=== PATIENT | male | born 1995 ===

== ENCOUNTER 2021-08-16 02:31 | Emergency (ER) | payer SELFPAY ==
[2021-08-16 03:02] VITALS: BP 136/78
== END 2021-08-17 13:19 | disposition left against medical advice (07) ==
LOC: ED 02:31
DX: M79.671 Pain in right foot (principal); Z53.21 Procedure and treatment not carried out due to patient leaving prior to being seen by health care provider

== ENCOUNTER 2021-08-28 12:48 | Emergency (ER) | payer SELFPAY ==
[2021-08-28 13:24] VITALS: BP 110/65
== END 2021-08-29 23:40 | disposition left against medical advice (07) ==
LOC: ED 12:48
DX: Z13.30 Encounter for screening examination for mental health and behavioral disorders, unspecified (principal); Z53.21 Procedure and treatment not carried out due to patient leaving prior to being seen by health care provider; V89.2XXA Person injured in unspecified motor-vehicle accident, traffic, initial encounter; Y93.89 Activity, other specified; Y92.89 Other specified places as the place of occurrence of the external cause; Y99.8 Other external cause status

== ENCOUNTER 2021-08-30 10:44 | Emergency (ER) | payer SELFPAY ==
[2021-08-30 10:58] VITALS: BP 113/71
== END 2021-08-30 13:00 | disposition left against medical advice (07) ==
LOC: ED 10:44
DX: Z00.00 Encounter for general adult medical examination without abnormal findings (principal); Z53.21 Procedure and treatment not carried out due to patient leaving prior to being seen by health care provider; Y08.89XA Assault by other specified means, initial encounter; Y93.89 Activity, other specified; Y92.89 Other specified places as the place of occurrence of the external cause; Y99.8 Other external cause status

== ENCOUNTER 2021-08-30 20:55 | Emergency (ER) | payer SELFPAY ==
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
[2021-08-30 23:51] LABS: Hemoglobin 12.9 gm/dl (11.8-15.2); Mean Corpuscular HGB Conc 33 % (32-34); Mean Corpuscular Volume 93 fl (84-94); Platelet Count 227 K/mm3 (140-440); Red Blood Count 4.21 M/mm3 (3.65-5.03); Red Cell Distribution Width 14.3 % (13.2-15.2)
[2021-08-31 00:01] LABS: BUN/Creatinine Ratio 11; Blood Urea Nitrogen 9 mg/dL (9-20); Hemolysis Index 6
[2021-08-31] MEDS ORDERED: ACETAMINOPHEN 325 MG TAB PO ONE (04:01)
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
[2021-08-31] MEDS ORDERED: ARIPiprazole 10 MG TAB PO ONE (10:33)
--- NOTE | 2021-08-31 11:16 | Event Note ---
Date: 08/31/21 vss no distress, awaiting placement . medically cleared
[2021-08-31] MEDS: FLUoxetine 10 MG TAB PO SCH (11:26)
[2021-08-31] MEDS: ARIPiprazole 10 MG TAB PO SCH (11:26)
[2021-08-31 19:35] LABS: Bilirubin,Urine NEG (Negative); Blood,Urine NEG (Negative); Color,Urine Colorless (Yellow); Protein,Urine <15 mg/dL mg/dL (Negative); RBC,Urine < 1.0 /HPF (0.0-6.0); Urobilinogen,Urine < 2.0 mg/dL (<2.0); WBC,Urine < 1.0 /HPF (0.0-6.0)
[2021-08-31 19:43] LABS: Amphetamine Screen,Urine PRESUMPTIVE NEGATIVE; Benzodiazepines Screen,Urine PRESUMPTIVE NEGATIVE; Cannabinoid Screen,Urine PRESUMPTIVE NEGATIVE; Cocaine Screen,Urine PRESUMPTIVE NEGATIVE; Methadone Screen,Urine PRESUMPTIVE NEGATIVE; Opiate Screen,Urine PRESUMPTIVE NEGATIVE
[2021-08-31] MEDS ORDERED: traZODone 50 MG TAB PO SCH (22:00)
[2021-09-01 08:36] VITALS: BP 106/76
[2021-09-01] MEDS: ARIPiprazole 10 MG TAB PO SCH (09:00)
[2021-09-01] MEDS: FLUoxetine 10 MG TAB PO SCH (09:00)
--- NOTE | 2021-09-01 09:44 | Progress Note ---
Subjective - Reason for Consult Consult date: 09/01/21 Reason for consult: suicidal ideation - Chief Complaint Chief complaint: The patient was seen this morning. He reports doing well and in an upbeat mood. He reports sleep and appetite as good. The patient denies any current suicidal/homicidal and denies hallucination. Will discharge patient to his mother. REVIEW OF SYSTEMS Constitutional: Negative for weight loss ENT: Negative for stridor Respiratory: Negative for cough or hemoptysis All other systems reviewed and are negative MENTAL STATUS EXAMINATION General Appearance and Behavior: Age appropriate, good hygiene, wearing appropriate clothes, fair eye contact, cooperative polite with questioning. Cooperation: Participating/engaged, guarded Psychomotor Behavior: unremarkable and within normal limits Mood: Calm Affect and affective range: congruent with mood Thought Process: Goal directed Thought Content: reality oriented Speech: Normal volume, Regular rate and rhythm, Suicidal Ideation: Denies Homicidal Ideation: Denies Hallucinations: Denies Delusions: None Impulse Control: Normal Insight and Judgment: Limited insight and judgment, Memory: Normal, Attention: Normal, Orientation: Alert, oriented, Assessment and Plan (1) Hx Schizophrenia Treatment [id number] Continue home meds. Continue Abilify 15mg po daily Continue Prozac 10mg po daily Continue Trazodone 50mg po QHS Sitter: Per primary Medical: Per primary Disposition:Do not recommend acute inpatient psychiatric treatment. Discharge to patient's mother. Will sign off. Thanks Case staffed with Dr. Orlando Medications and Allergies Mental Status Exam - Vital signs Last Vital Signs Temp 98.7 F 09/01/21 08:35 Pulse 81 09/01/21 08:35 Resp 18 09/01/21 08:35 BP 106/76 09/01/21 08:35 Pulse Ox 100 09/01/21 08:35
--- NOTE | 2021-09-01 11:54 | Emergency Department Report ---
Blank Doc - Documentation Documentation: 25-year-old male with schizophrenia initially placed on 1013 for psychosis and homicidal ideation. Patient's been tolerating p.o. medications in the ED for several days. Current mental health provider note reviewed with recommendation for discontinue 1013 and discharged on medications. Vital signs unremarkable. Nurses notes reviewed with no reports of events overnight.
== END 2021-09-01 14:12 | disposition home or self-care (01) ==
LOC: EEVIPCON 20:55 → ED 20:55
DX: R45.850 Homicidal ideations (principal); R44.0 Auditory hallucinations; F31.9 Bipolar disorder, unspecified; J45.909 Unspecified asthma, uncomplicated; F17.200 Nicotine dependence, unspecified, uncomplicated; Z20.822 Contact with and (suspected) exposure to COVID-19
CPT/HCPCS: 36415; 72040; 80048; 80307; 81001; 85027; 99285; U0003; 80320; G0480

== ENCOUNTER 2021-09-02 12:47 | Emergency (ER) | payer SELFPAY ==
[2021-09-02] MEDS ORDERED: LORazepam 2 MG/ML VIAL IM PRN (17:36)
[2021-09-02] MEDS ORDERED: HALOPERIDOL LACTATE 5 MG/1 ML INJ IM PRN (17:36)
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
[2021-09-02 17:56] LABS: Hematocrit 43.4 % (35.5-45.6); Hemoglobin 14.6 gm/dl (11.8-15.2); Mean Corpuscular HGB Conc 34 % (32-34); Mean Corpuscular Volume 92 fl (84-94); Platelet Count 268 K/mm3 (140-440); Red Blood Count 4.72 M/mm3 (3.65-5.03); Red Cell Distribution Width 14.5 % (13.2-15.2)
[2021-09-02 18:09] LABS: Bilirubin,Urine NEG (Negative); Blood,Urine NEG (Negative); Color,Urine Yellow (Yellow); Protein,Urine <15 mg/dL mg/dL (Negative); Urobilinogen,Urine < 2.0 mg/dL (<2.0)
[2021-09-02 18:16] LABS: BUN/Creatinine Ratio 19; Blood Urea Nitrogen 15 mg/dL (9-20); Calcium 9.7 mg/dL (8.4-10.2); Hemolysis Index 12
[2021-09-02 18:17] LABS: Amphetamine Screen,Urine PRESUMPTIVE NEGATIVE; Benzodiazepines Screen,Urine PRESUMPTIVE NEGATIVE; Cannabinoid Screen,Urine PRESUMPTIVE NEGATIVE; Cocaine Screen,Urine PRESUMPTIVE NEGATIVE; Methadone Screen,Urine PRESUMPTIVE NEGATIVE; Opiate Screen,Urine PRESUMPTIVE NEGATIVE
[2021-09-02] MEDS: FLUoxetine 10 MG TAB PO SCH (20:25)
[2021-09-02] MEDS: ARIPiprazole 15 MG TAB PO SCH (20:25)
[2021-09-02] MEDS ORDERED: traZODone 50 MG TAB PO SCH (22:00)
[2021-09-03] MEDS: ARIPiprazole 15 MG TAB PO SCH (09:41)
[2021-09-03] MEDS: FLUoxetine 10 MG TAB PO SCH (09:41)
[2021-09-03 10:17] VITALS: BP 94/70
--- NOTE | 2021-09-03 11:29 | Consultation ---
History of Present Illness - Reason for Consult Consult date: 09/03/21 Reason for consult: mental health evaluation - History of Present Psychiatric Illness The patient was recently discharged. He came back because he states that his mother is coming to pick him up. The patient is alert and oriented x4. He denies any current suicidal/homicidal ideation and denies hallucinations. PAST PSYCHIATRIC HISTORY Diagnoses: schizophrenia, Bipolar Suicide attempts or Self-harm behavior: Denies Prior psychiatric hospitalizations: Yes Substance Abuse history: Denies Previous psychiatric medications tried:Haldol, Abilify Outpatient treatment: Yes PAST MEDICAL HISTORY: none reported Family Psychiatric History: None reported or documented SOCIAL HISTORY Marital Status: Single Living Arrangements: Employment Status: unemployed Access to guns/weapons: Denies Education: History of Abuse: none reported Legal History: none reported REVIEW OF SYSTEMS Constitutional: Negative for weight loss ENT: Negative for stridor Respiratory: Negative for cough or hemoptysis All other systems reviewed and are negative MENTAL STATUS EXAMINATION General Appearance and Behavior: Age appropriate, good hygiene, wearing appropriate clothes, goodeye contact, cooperative polite with questioning. Cooperation: Participating/engaged Psychomotor Behavior: unremarkable and within normal limits Mood: Calm Affect and affective range: congruent with mood Thought Process: Goal directed Thought Content: reality oriented Speech: Normal volume, Regular rate and rhythm, Suicidal Ideation: Denies Homicidal Ideation: Denies Hallucinations: Denies Delusions: None Impulse Control: Normal Insight and Judgment: Limited insight and judgment, Memory: Normal, Attention: Normal, Orientation: Alert, oriented, Assessment and Plan (1) [place] [address] Continue home meds. Sitter: Per primary Medical: Per primary Disposition:Do not recommend acute inpatient psychiatric treatment. Will sign off. Thanks Case staffed with Dr. [place] Medications and Allergies Medications and Allergies Allergies Allergy/AdvReac Type Severity Reaction Status Date / Time No Known Allergies Allergy Verified 09/03/21 09:48 Home Medications Medication Instructions Recorded Confirmed Last Taken Type ARIPiprazole [Abilify] 15 mg PO DAILY 90 Days #90 tab 09/01/21 09/03/21 Unknown Rx FLUoxetine HCL [Prozac] 10 mg PO DAILY 90 Days #90 cap 09/01/21 09/03/21 Unknown Rx traZODone [Desyrel] 50 mg PO QHS 90 Days #90 tab 09/01/21 09/03/21 Unknown Rx Active Meds: Active Medications Aripiprazole (Aripiprazole 15 Mg Tab) 15 mg PO DAILY [facility] Last Admin: 09/03/21 09:41 Dose: 15 mg Fluoxetine HCl (Fluoxetine 10 Mg Tab) 10 mg PO DAILY [facility] Last Admin: 09/03/21 09:41 Dose: 10 mg Haloperidol Lactate (Haloperidol Lactate 5 Mg/1 Ml Inj) 5 mg IM Q6HR PRN PRN Reason: Agitation Lorazepam (Lorazepam 2 Mg/Ml Vial) 2 mg IM Q4HR PRN PRN Reason: Agitation Trazodone HCl (Trazodone 50 Mg Tab) 50 mg PO QHS [facility] Last Admin: 09/02/21 22:09 Dose: 50 mg Mental Status Exam - Vital signs Last Vital Signs Temp 97.6 F 09/03/21 10:16 Pulse 80 09/03/21 10:16 Resp 18 09/03/21 10:16 BP 94/70 09/03/21 10:16 Pulse Ox 100 09/03/21 10:16 Results Result Diagrams: 09/02/21 17:44 09/02/21 17:44 Abnormal lab results 09/02/21 09/02/21 09/02/21 Range/Units 17:44 17:44 17:44 Total Creatine Kinase 416 H (55-170) units/L Salicylates < 0.3 L (2.8-20.0) mg/dL Acetaminophen 5.0 L (10.0-30.0) ug/mL All other labs normal.
== END 2021-09-03 11:53 ==
LOC: ED 12:47
DX: F20.9 Schizophrenia, unspecified (principal); R45.850 Homicidal ideations; F32.9 Major depressive disorder, single episode, unspecified; F84.0 Autistic disorder; J45.909 Unspecified asthma, uncomplicated; G89.29 Other chronic pain; M79.604 Pain in right leg; Z98.890 Other specified postprocedural states; F17.290 Nicotine dependence, other tobacco product, uncomplicated
CPT/HCPCS: 36415; 80048; 80307; 80320; 81001; 82550; 83735; 85027; 99284; G0480